=== PATIENT | female | born 1990 | race Caucasian/White ===

== ENCOUNTER 2016-05-05 12:35 | Emergency (ER) | payer MEDICAID, OTHER ==
[~2016-05-05] VITALS: Ht 152.4 cm; Wt 70.0 kg
[~2016-05-05 12:35] MED LIST: NORC10TA2 PO; PRED10 PO; [UNRECOGNIZED DRUG - CODE] IV
[2016-05-05 12:36] VITALS: BP 133/82; PULSE 95; RESP 20; TEMP 97.9; O2SAT 100
[2016-05-05] MEDS ORDERED: diphenhydrAMINE HCL 50 MG/ML VIAL IVP ONE (14:00)
[2016-05-05] MEDS ORDERED: SODIUM CHLORIDE 0.9% FLUSH 10 ML FLUSH IVF PRN (14:00)
[2016-05-05] MEDS ORDERED: PROCHLORPERAZINE INJ 10 MG/2 ML VIAL IVP ONE (14:00)
[2016-05-05] MEDS ORDERED: ERGO1CAP10 PO (14:01)
[2016-05-05] MEDS ORDERED: INTE1KIT2 IM (14:01)
[2016-05-05] MEDS ORDERED: ADDE30TA PO (14:01)
--- NOTE | 2016-05-05 14:04 | PD ---
HPI . Headache Chief Complaint: Headache Time Seen by Provider: 13:43 Travel History International Travel<30 days: No Contact w/Intl Traveler<30days: No Traveled to known affect area: No History of Present Illness HPI Patient presents with the acute onset of headache, dizziness and nausea. This started this morning. It has been getting progressively worse. She describes a global headache. She has taken Tylenol without relief. Medical history significant for ADHD and multiple sclerosis. [id number]: Head DURATION: About 6 hours TIMING: Progressively worsening CONTEXT: History of MS MODIFYING FACTORS: No exacerbating or relieving factors ASSOCIATED SYMPTOMS: Nausea and dizziness PFSH Past Medical History Cancer: No Cardiovascular Problems: Yes (Heart murmur) Diabetes: No Diminished Hearing: No Endocrine: No Genitourinary: No Hepatitis: No Hiatal Hernia: No Immune Disorder: No Musculoskeletal: No Neurologic: Yes (MS recent diagnosis) Psychiatric: No Reproductive: No Respiratory: No Immunizations Current: Yes Thyroid Disease: No ?: Not LMP: 3 MONTHS AGO : 3 Para: 2 Miscarriage: 1 Past Surgical History Abdominal Surgery: No AICD: No Cardiac Surgery: No Section: Yes (x2) Ear Surgery: No Endocrine Surgery: No Eye Surgery: No Genitourinary Surgery: No Gynecologic Surgery: Yes (2 c-sections) Joint Replacement: No Oral Surgery: No Pacemaker: No Thoracic Surgery: No Other Surgery: Yes (Lumbar puncture) Social History Alcohol Use: No Tobacco Use: No (1/2 ppd) Substance Use: No Allergies-Medications (Allergen,Severity, Reaction): Coded Allergies: No Known Allergies (Verified , 05/05/16) Reported Meds & Prescriptions Reported Meds & Active Scripts Active Reported Vitamin D (Ergocalciferol) 50,000 Unit Cap 5,000 Units PO Q7D Avonex Inj Kit (Interferon Beta 1a) 30 Mcg/Vial Kit 30 Mcg IM Q7D Adderall (Amphetamine-Dextroamphetamine) 30 Mg Tab 30 Mg PO DAILY Avoid late evening doses. Space doses at least 4 to 6 hours if more than once/day dosing. Review of Systems Except as stated in HPI: all other systems reviewed are Neg General / Constitutional: No: Fever, Chills Eyes: Positive: Photophobia, No: Diploplia, Blurred Vision HENT: Positive: Headaches Cardiovascular: No: Chest Pain or Discomfort Respiratory: No: Shortness of Breath Gastrointestinal: Positive: Nausea, No: Vomiting, Diarrhea Neurologic: Positive: Dizziness, Headache, No: Change in Mentation, Slurred Speech, Paresthesia Physical Exam Narrative GENERAL: This is a healthy-appearing female who is lying on the stretcher with the lights on and using her cell phone. SKIN: Warm and dry. HEAD: Atraumatic. Normocephalic. EYES: Pupils equal and round. Extraocular movements are intact. ENT: No nasal bleeding or discharge. Mucous membranes pink and moist. NECK: Trachea midline. Neck is supple. CARDIOVASCULAR: Regular rate and rhythm. Heart sounds are normal. RESPIRATORY: No accessory muscle use. Lungs are clear with full air movement throughout. GASTROINTESTINAL: Abdomen soft, non-tender, nondistended. MUSCULOSKELETAL: No obvious deformities. No edema. NEUROLOGICAL: Awake and alert. No obvious cranial nerve deficits. Motor grossly within normal limits. Normal speech. Eoffji-cnyd-xnrymo exam is intact bilaterally. PSYCHIATRIC: Appropriate mood and affect; insight and judgment normal. Data Data Last Documented VS Vital Signs Date Time Temp Pulse Resp B/P Pulse Ox O2 Delivery O2 Flow Rate FiO2 05/05/16 12:36 97.9 95 20 133/82 100 Room Air Orders Iv Access Insert/Monitor (05/05/16 13:49) Sodium Chloride 0.9% Flush (Ns Flush) (05/05/16 14:00) Prochlorperazine Inj (Compazine Inj) (05/05/16 14:00) Diphenhydramine Inj (Benadryl Inj) (05/05/16 14:00) MDM Medical Decision Making Medical Screen Exam Complete: Yes Emergency Medical Condition: Yes Medical Record Reviewed: Yes (she has a history of diplopia associated with MS) Differential Diagnosis Differential diagnosis of headache includes but is not limited to migraine, muscle contraction headache, brain tumor, brain bleed Narrative Course Patient presents for headache. She has a benign physical exam. She will be treated symptomatically. Patient is refusing IV medications. She will be given 2 Fioricet and discharged home. Diagnosis Primary Impression: Headache Qualified Code: R51 - Acute nonintractable headache, unspecified headache type Patient Instructions: Acute Headache (DC), General Instructions Disposition: DISCHARGE HOME Condition: Stable Carlie Pearson MD May 05, 2016 14:03
[2016-05-05 14:06] VITALS: BP 122/81; PULSE 86; RESP 17; O2SAT 98
[2016-05-05] MEDS ORDERED: ACETAMIN 325 MG/BUTALBITAL 50 MG/CAFFEINE 40 MG TAB PO ONE (14:15)
== END 2016-05-05 16:20 | disposition home or self-care (01) ==
LOC: NEPA 12:35
DX: R51 Headache (principal)
CPT/HCPCS: 99283

== ENCOUNTER 2016-08-29 18:16 | Emergency (ER) | payer OTHER ==
[~2016-08-29] VITALS: Ht 152.4 cm; Wt 68.0 kg
[~2016-08-29 18:16] MED LIST changes: +ADDE30TA PO; +ERGO1CAP10 PO; +INTE1KIT2 IM; -NORC10TA2 PO; -PRED10 PO; -[UNRECOGNIZED DRUG - CODE] IV
[2016-08-29 18:19] VITALS: BP 147/85; PULSE 79; RESP 15; TEMP 98.4; O2SAT 99
== END 2016-08-29 20:40 | disposition left against medical advice (07) ==
LOC: NED 18:16
DX: R69 Illness, unspecified (principal); Z53.21 Procedure and treatment not carried out due to patient leaving prior to being seen by health care provider
CPT/HCPCS: 99281

== ENCOUNTER 2017-04-09 13:34 | Emergency (ER) | payer OTHER ==
[~2017-04-09] VITALS: Ht 154.9 cm; Wt 68.0 kg
[2017-04-09] MEDS ORDERED: GADODIAMIDE PF 287 MG/ML 5 ML VIAL (for RAD MRI) IVCONTRAST ONE (13:35)
[2017-04-09 13:40] VITALS: BP 146/75; PULSE 106; RESP 16; TEMP 98.3; O2SAT 99
[2017-04-09] MEDS ORDERED: PROPARACAINE HCL 0.5% OPHT SOLN 15 ML BTL EACH EYE ONE (14:15)
--- NOTE | 2017-04-09 14:17 | PD ---
HPI Chief Complaint: Headache Time Seen by Provider: 13:55 Travel History International Travel<30 days: No Contact w/Intl Traveler<30days: No Traveled to known affect area: No History of Present Illness HPI 26-year-old female presents to the emergency department for evaluation of occipital headache, bilateral eye blurriness that started approximately 30 minutes ago. Patient reports history of multiple sclerosis. She states the last time she had these symptoms, she was admitted for high-dose IV steroids. Patient was diagnosed with optic neuritis at that time. Patient reports headache 9/10, aching and throbbing without radiation. She does report some pressure to her bilateral eyes. Patient denies any other symptoms. She denies . She states that she is currently on Adderall. Her neurologist is Dr. Sinclair. Moderate severity.. PFSH Past Medical History Cancer: No Cardiovascular Problems: Yes (Heart murmur) Diabetes: No Diminished Hearing: No Endocrine: No Gastrointestinal Disorders: No Genitourinary: No Hepatitis: No Hiatal Hernia: No Hypertension: No Immune Disorder: No Medical other: No Musculoskeletal: No Neurologic: Yes (MS recent diagnosis) Psychiatric: No Reproductive: No Respiratory: No Immunizations Current: Yes Thyroid Disease: No ?: Not LMP: N/A UTERINE ABLATION : 3 Para: 2 Miscarriage: 1 Tubal Ligation: Yes Past Surgical History Abdominal Surgery: No AICD: No Cardiac Surgery: No Section: Yes (x2) Ear Surgery: No Endocrine Surgery: No Eye Surgery: No Genitourinary Surgery: No Gynecologic Surgery: Yes (2 c-sections) Joint Replacement: No Neurologic Surgery: No Oral Surgery: No Pacemaker: No Thoracic Surgery: No Other Surgery: Yes (csections (2)) Social History Alcohol Use: Yes (on occasion) Tobacco Use: Yes (1/2 ppd) Substance Use: No Allergies-Medications (Allergen,Severity, Reaction): Coded Allergies: No Known Allergies (Verified Allergy, Unknown, 04/09/17) Reported Meds & Prescriptions Reported Meds & Active Scripts Active Reported Avonex Inj Kit (Interferon Beta 1a) 30 Mcg/Vial Kit 30 Mcg IM Q7D Adderall (Amphetamine-Dextroamphetamine) 30 Mg Tab 30 Mg PO DAILY Avoid late evening doses. Space doses at least 4 to 6 hours if more than once/day dosing. Review of Systems Except as stated in HPI: all other systems reviewed are Neg Physical Exam Narrative GENERAL: Well-nourished, well-developed female patient, ambulatory. Afebrile. SKIN: Focused skin assessment warm/dry. HEAD: Normocephalic. Atraumatic. ENT: Mucosa pink and moist. No erythema or exudates. No uvular edema. No uvular , palatal, or tonsillar deviation. Airway patent. Nasal turbinates appear normal without nasal blood, purulent drainage or septal hematoma. Bilateral tympanic membranes are clear without erythema or perforation. EYES: No scleral icterus. No injection or drainage. PERRLA. EOM intact. NECK: Supple, trachea midline. No JVD or lymphadenopathy. CARDIOVASCULAR: Regular rate and rhythm without murmurs, gallops, or rubs. RESPIRATORY: Breath sounds equal bilaterally. No accessory muscle use. Lungs sounds are clear to auscultation. GASTROINTESTINAL: Abdomen soft, non-tender, nondistended. MUSCULOSKELETAL: No cyanosis, or edema. Bilateral upper and lower extremity strength 5/5. All extremities are neurovascularly intact. BACK: Nontender without obvious deformity. No CVA tenderness. NEUROLOGICAL: Awake and alert. Cranial nerves II through XII intact. Motor and sensory grossly within normal limits. Five out of 5 muscle strength in all muscle groups. Normal speech. Finger to nose is normal bilaterally. Heel-to- vazquez is normal bilaterally. Data Data Last Documented VS Vital Signs Date Time Temp Pulse Resp B/P (MAP) Pulse Ox O2 Delivery O2 Flow Rate FiO2 04/09/17 20:06 92 18 118/64 (82) 96 Room Air 04/09/17 13:40 98.3 Orders Orders Complete Blood Count With Diff (04/09/17 14:09) Comprehensive Metabolic Panel (04/09/17 14:09) Prothrombin Time / Inr (Pt) (04/09/17 14:09) Act Partial Throm Time (Ptt) (04/09/17 14:09) Urinalysis - C+S If Indicated (04/09/17 14:09) Ed Urine Pregnancytest Poc (04/09/17 14:09) Proparacaine 0.5% Opth Soln (Alcaine 0.5 (04/09/17 14:15) Thyroid Stimulating Hormone (04/09/17 14:09) Methylprednisolone So Succ Inj (Solumedr (04/09/17 14:45) Mri Brain W&W/O Contrast (04/09/17 ) Mri C Spine W&W/O Contrast (04/09/17 ) Sodium Chlor 0.9% 1000 Ml Inj (Ns 1000 M (04/09/17 16:30) Prochlorperazine Inj (Compazine Inj) (04/09/17 16:30) Diphenhydramine Inj (Benadryl Inj) (04/09/17 16:30) Lorazepam Inj (Ativan Inj) (04/09/17 17:30) Gadodiamide Pf Inj (Omniscan Pf Inj) (04/09/17 13:35) Labs Laboratory Tests Test 04/09/17 14:45 White Blood Count 8.1 TH/MM3 Red Blood Count 4.77 MIL/MM3 Hemoglobin 15.1 GM/DL Hematocrit 43.1 % Mean Corpuscular Volume 90.4 FL Mean Corpuscular Hemoglobin 31.6 PG Mean Corpuscular Hemoglobin Concent 35.0 % Red Cell Distribution Width 13.1 % Platelet Count 288 TH/MM3 Mean Platelet Volume 7.3 FL Neutrophils (%) (Auto) 60.1 % Lymphocytes (%) (Auto) 28.6 % Monocytes (%) (Auto) 6.2 % Eosinophils (%) (Auto) 4.1 % Basophils (%) (Auto) 1.0 % Neutrophils # (Auto) 4.9 TH/MM3 Lymphocytes # (Auto) 2.3 TH/MM3 Monocytes # (Auto) 0.5 TH/MM3 Eosinophils # (Auto) 0.3 TH/MM3 Basophils # (Auto) 0.1 TH/MM3 CBC Comment DIFF FINAL Differential Comment Prothrombin Time 9.8 SEC Prothromb Time International Ratio 1.0 RATIO Activated Partial Thromboplast Time 26.6 SEC Urine Color YELLOW Urine Turbidity HAZY Urine pH 7.0 Urine Specific Nixon 1.015 Urine Protein NEG mg/dL Urine Glucose (UA) NEG mg/dL Urine Ketones NEG mg/dL Urine Occult Blood NEG Urine Nitrite NEG Urine Bilirubin NEG Urine Urobilinogen LESS THAN 2.0 MG/DL Urine Leukocyte Esterase NEG Urine RBC LESS THAN 1 /hpf Urine WBC 2 /hpf Urine Squamous Epithelial Cells 6 /hpf Urine Bacteria FEW /hpf Urine Mucus FEW /lpf Microscopic Urinalysis Comment CULT NOT INDICATED Blood Urea Nitrogen 10 MG/DL Creatinine 0.79 MG/DL Random Glucose 90 MG/DL Total Protein 7.3 GM/DL Albumin 3.8 GM/DL Calcium Level 8.8 MG/DL Alkaline Phosphatase 67 U/L Aspartate Amino Transf (AST/SGOT) 14 U/L Alanine Aminotransferase (ALT/SGPT) 14 U/L Total Bilirubin 0.2 MG/DL Sodium Level 138 MEQ/L Potassium Level 4.0 MEQ/L Chloride Level 105 MEQ/L Carbon Dioxide Level 27.5 MEQ/L Anion Gap 6 MEQ/L Estimat Glomerular Filtration Rate 87 ML/MIN Thyroid Stimulating Hormone 3rd Gen 2.330 uIU/ML MDM Medical Decision Making Medical Screen Exam Complete: Yes Emergency Medical Condition: Yes Medical Record Reviewed: Yes Interpretation(s) Last Impressions Cervical Spine MRI 04/09/17 0000 Signed Impressions: Service Date/Time: Sunday, April 09, 2017 19:13 - CONCLUSION: 1. Focal rounded area of increased T2 signal within the spinal cord measuring 4.5 mm posterior to C4 with slightly increased T2 signal inferior to this. No associated abnormal enhancement. A demyelinating process such as multiple sclerosis should be entertained.. 2. Degenerative disc disease at C5-6. Servando Womack MD Brain MRI 04/09/17 0000 Signed Impressions: Service Date/Time: Sunday, April 09, 2017 19:13 - CONCLUSION: Findings again noted characteristic of multiple sclerosis as well as optic neuritis. Servando Womack MD Differential Diagnosis Optic neuritis versus multiple sclerosis versus migraine headache Narrative Course 26-year-old female presents to the emergency department for evaluation of headache and blurry vision that started approximately 30 minutes ago. She states the last time she had that she was admitted for high-dose IV steroids. Visual acuity is 20/100 and the left and 20/70 in the right. IOP is 15 in the right eye, 12 in the left eye. CBC, CMP, PTT, PTT/INR, UA, urine test , TSH are ordered and pending. Dr. Odell is paged. I spoke to Dr. Carreon who is exhaust emissions automotive technician. She would like MRI with and without contrast and Solu-Medrol 1 g IV over 4 hours given. These are ordered. Once labs are returned, patient be admitted to [facility]. CBC shows no acute abnormality. CMP shows no acute abnormality. Coags are unremarkable. UA is negative for acute infection. TSH is 2.330. UPT is negative. I spoke to Dr. Moon for [facility]. He would like MRIs to be completed and patient possibly discharged on prednisone taper. He spoke to Dr. Carreon who agreed with plan. MRI of the cervical spine with and without contrast is ordered. MRI of the brain shows findings consistent with multiple sclerosis as well as optic neuritis. MRI of the cervical spine shows focal rounded area of increased T2 signal within the spinal cord measuring 4.5 mm posterior to C4 with slightly increased T2 signal inferior to this. No associated abnormal enhancement. A demyelinating process such as multiple sclerosis should be entertained., Degenerative disc disease at C5-6. I discussed the findings with Dr. Carreon, neurologist. She recommends discharge home with prednisone taper. I discussed this with the patient who agrees. She' ll follow-up with Dr. Odell early next week. I will give her a work note. She started prednisone taper she received large doses steroids in the emergency department. The patient was discharged in stable condition with instructions, including return instructions and follow up instructions. Diagnosis Primary Impression: Multiple sclerosis Additional Impression: Optic neuritis due to multiple sclerosis Referrals: Neurologist 2 days Patient Instructions: General Instructions, Multiple Sclerosis (GEN), Optic Neuritis (ED) Departure Forms: Tests/Procedures, Work Release Enter return to work date: Apr 13, 2017 Additional Instructions: Take prednisone as directed. Start this tomorrow. Follow-up with your neurologist on Tuesday. Return to the emergency department for any acute worsening of symptoms. Med/Other Pt SpecificInfo: Prescription(s) given Scripts Prednisone (Prednisone) 20 Mg Tab 20 MG PO DIRECTED for 9 Days, TAB 0 Refills Take 60 MG daily x 3 days, then 40 MG x 3 days, then 20 MG daily x 3 days. Prov: Candi Awan 04/09/17 Disposition: 01 DISCHARGE HOME Condition: Stable Candi Awan Apr 09, 2017 14:17
[2017-04-09] MEDS ORDERED: DEXTROSE 5% IV ONE ×2 (14:45)
[2017-04-09] MEDS ORDERED: WATER IV ONE ×2 (14:45)
[2017-04-09] MEDS ORDERED: METHYLPREDNISOLONE SO SUCC IV ONE ×2 (14:45)
[2017-04-09 15:04] LABS: AUTOMATED NEUTROPHIL # 4.9 TH/MM3 (1.8-7.7); BASOPHIL # 0.1 TH/MM3 (0-0.2); EOSINOPHIL # 0.3 TH/MM3 (0-0.4); EOSINOPHIL % 4.1 % (0.0-4.0); HEMATOCRIT 43.1 % (35.0-46.0); HEMOGLOBIN 15.1 GM/DL (11.6-15.3); LYMPH % 28.6 % (9.0-44.0); LYMPHOCYTE # 2.3 TH/MM3 (1.0-4.8); MEAN CELL VOLUME 90.4 FL (80.0-100.0); MEAN CORPUSCULAR HEMOGLOBIN 31.6 PG (27.0-34.0); MEAN PLATELET VOLUME 7.3 FL (7.0-11.0); MONO % 6.2 % (0.0-8.0); MONOCYTE # 0.5 TH/MM3 (0-0.9); NEUT % 60.1 % (16.0-70.0); PLATELET COUNT 288 TH/MM3 (150-450); RED BLOOD COUNT 4.77 MIL/MM3 (4.00-5.30); RED CELL DISTRIBUTION WIDTH 13.1 % (11.6-17.2); WHITE BLOOD COUNT 8.1 TH/MM3 (4.0-11.0)
[2017-04-09 15:16] LABS: PROTHROMBIN TIME - PATIENT 9.8 SEC (9.8-11.6)
[2017-04-09 15:27] LABS: ALBUMIN 3.8 GM/DL (3.4-5.0); ALT (GPT) 14 U/L (10-53); AST (GOT) 14 U/L (15-37); BICARBONATE 27.5 MEQ/L (21.0-32.0); BLOOD UREA NITROGEN 10 MG/DL (7-18); CALCIUM 8.8 MG/DL (8.5-10.1); CHLORIDE 105 MEQ/L (98-107); CREATININE 0.79 MG/DL (0.50-1.00); GLOMERULAR FILTRATION RATE 87 ML/MIN (>89); GLUCOSE,RANDOM 90 MG/DL (74-106); SODIUM (NA) 138 MEQ/L (136-145)
[2017-04-09 15:37] LABS: BACTERIA, URINE FEW /hpf; BILIRUBIN, URINE NEG (NEG); BLOOD, URINE NEG (NEG); GLUCOSE,URINE NEG (NEG); KETONE, URINE NEG (NEG); MUCUS URINE FEW /lpf (OCC); NITRITE,URINE NEG (NEG); SQUAMOUS EPITHELIAL CELL URINE 6 /hpf (0-5); URINE COLOR YELLOW (YELLW/STRAW); URINE LEUKOCYTE ESTERASE NEG (NEG)
[2017-04-09 15:38] LABS: ALKALINE PHOSPHATASE 67 U/L (45-117); TOTAL BILIRUBIN ADULT 0.2 MG/DL (0.2-1.0); TOTAL PROTEIN 7.3 GM/DL (6.4-8.2)
[2017-04-09] MEDS ORDERED: PROCHLORPERAZINE INJ 10 MG/2 ML VIAL IV PUSH ONE (16:30)
[2017-04-09] MEDS ORDERED: diphenhydrAMINE HCL 50 MG/ML VIAL IV PUSH ONE (16:30)
[2017-04-09] MEDS ORDERED: SODIUM CHLOR 0.9% 1000 ML INJ 1,000 ML IV ONE (16:30)
[2017-04-09] MEDS ORDERED: LORazepam 2 MG/ML VIAL IV PUSH ONE (17:30)
[2017-04-09 20:06] VITALS: BP_SYST 118; BP_SYST 188; BP_DIAS 64; PULSE 92; RESP 18; O2SAT 96
--- NOTE | 2017-04-09 20:13 | RADRPT ---
EXAM DATE/TIME: 04/09/2017 19:13 [facility] COMPARISON: MRI BRAIN W & W/O CONTRAST, April 09, 2017, 19:13. INDICATIONS : Cephalgia. CONTRAST: 13 cc Omniscan (gadodiamide) IV MEDICAL HISTORY : Multiple sclerosis. SURGICAL HISTORY : section. ENCOUNTER: Initial ACUITY: 1 day PAIN SCORE: 0/10 LOCATION: Paraspinal TECHNIQUE: Multiplanar, multisequence MRI examination of the cervical spine was performed. FINDINGS: VERTEBRAE: Normal vertebral body height. Homogeneous marrow signal. There is disc desiccation identified. Moder ate disc space narrowing at C5-6 is seen. There are foci of increased T2 signal seen within the cervi selena cord posterior to C4 and C5. There is no associated abnormal enhancement following contrast minis tration. ALIGNMENT: No evidence of subluxation. CORD: Normal configuration and signal. POST FOSSA: The cerebellar tonsils are normal in position. POST-CONTRAST: No abnormal areas of enhancement are seen. C2-C3: The thecal sac has a normal configuration. There is no evidence of disc herniation or spinal canal stenosis. The neural foramina are patent bilaterally. C3-C4: The thecal sac has a normal configuration. There is no evidence of disc herniation or spinal canal s tenosis. The neural foramina are patent bilaterally. C4-C5: The thecal sac has a normal configuration. There is no evidence of disc herniation or spinal canal s tenosis. The neural foramina are patent bilaterally. C5-C6: Diffuse disc osteophyte complex eccentric to the left abuts the cord with mild canal narrowing. C6-C7: The thecal sac has a normal configuration. There is no evidence of disc herniation or spinal canal s tenosis. The neural foramina are patent bilaterally. C7-T1: The thecal sac has a normal configuration. There is no evidence of disc herniation or spinal canal s tenosis. The neural foramina are patent bilaterally. CONCLUSION: 1. Focal rounded area of increased T2 signal within the spinal cord measuring 4.5 mm posterior to C4 with slightly increased T2 signal inferior to this. No associated abnormal enhancement. A demyelinati ng process such as multiple sclerosis should be entertained.. 2. Degenerative disc disease at C5-6. Servando Womack MD on April 09, 2017 at 20:09 Board Certified Radiologist. This report was verified electronically.
--- NOTE | 2017-04-09 20:20 | RADRPT ---
EXAM DATE/TIME: 04/09/2017 19:13 [facility] COMPARISON: MRI BRAIN W & W/O CONTRAST, November 03, 2014, 13:23. INDICATIONS : Cephalgia. Blurred vision. CONTRAST: 13 cc Omniscan (gadodiamide) IV MEDICAL HISTORY : Multiple sclerosis. SURGICAL HISTORY : section. ENCOUNTER: Initial ACUITY: 1 day PAIN SCORE: 5/10 LOCATION: cranial TECHNIQUE: Multiplanar, multisequence MRI of the brain was performed both prior to and following the administrat ion of paramagnetic contrast. FINDINGS: There is a history of multiple sclerosis according to the clinical history. There are no signs of acu te infarction. Mildly diffusion hyperintense innumerable T2 hyperintense lesions are seen throughout the white matter bilaterally. There is mild volume loss for age. Abnormal white matter lesions are se en in the subcortical white matter, centrum semiovale and periventricular regions, as well as the bas al ganglia, mira and this is no significantly changed. No worrisome masses. Following contrast demons tration no abnormal enhancing lesions are seen. There is atrophy of the optic nerves bilaterally, and findings suggest bilateral enhancement and increased T2 signal characteristic of optic neuritis. CONCLUSION: Findings again noted characteristic of multiple sclerosis as well as optic neuritis. Servando Womack MD on April 09, 2017 at 20:17 Board Certified Radiologist. This report was verified electronically.
[2017-04-09] MEDS ORDERED: PRED20 PO (20:48)
== END 2017-04-09 22:00 | disposition home or self-care (01) ==
LOC: NEPE 13:34
DX: H46.9 Unspecified optic neuritis (principal); G35 Multiple sclerosis; R01.1 Cardiac murmur, unspecified; M50.322 Other cervical disc degeneration at C5-C6 level; F17.200 Nicotine dependence, unspecified, uncomplicated; Z79.899 Other long term (current) drug therapy
CPT/HCPCS: 70553; 72156; 80053; 81001; 84443; 84703; 85025; 85610; 85730; 96361; 96365; 96375; 99284; A9579; J0780; J1200; J2060; J2930; J7030

== ENCOUNTER 2017-06-14 12:14 | Emergency (ER) | payer OTHER, MEDICAID ==
[2017-06-14 13:07] LABS: BILIRUBIN, URINE NEG (NEG); BLOOD, URINE NEG (NEG); COMMENT (UR) CULT NOT INDICATED; CULTURE IF INDICATED CULT NOT INDICATED; GLUCOSE,URINE NEG (NEG); KETONE, URINE TRACE mg/dL (NEG); MUCUS URINE MANY /lpf (OCC); NITRITE,URINE NEG (NEG); SQUAMOUS EPITHELIAL CELL URINE 7 /hpf (0-5); URINE COLOR YELLOW (YELLW/STRAW); URINE LEUKOCYTE ESTERASE NEG (NEG)
== END 2017-06-14 13:55 | disposition home or self-care (01) ==
LOC: NEPD 12:14
DX: R10.9 Unspecified abdominal pain (principal); F17.200 Nicotine dependence, unspecified, uncomplicated
CPT/HCPCS: 81001; 84703; 99283